=== PATIENT | male | born 1995 | race Caucasian/White ===

== ENCOUNTER 2017-03-08 15:09 | Emergency (ER) | payer BC ==
--- NOTE | ~2017-03-08 | CR21 ---
[facility] A Service of [facility] & [facility] RADIOLOGY TEXT RESULTS PATIENT: RACHEL DILLON LOCATION: SED : 95 UNIT #: [id number] AGE: [address]: ROLLY DAY SEX: M ORDER DR: [id number] [place] [id number] E MR#: [id number] Acc #: [id number] NAME: RACHEL DILLON. : 1995 SEX: M STUDY DATE/TIME: 03/08/2017 15:45 UNIT: SED ROOM: STUDY DESCRIPTION: CR Ankle Min 3 Views Rt Attending Physician: Rolly Day Ordering Physician: Rolly Day Primary Care Physician: Primary Care Physician No MEDICAL IMAGING REPORT This report is preliminary unless electronic signature is present. EXAM Right ankle 3 views. INDICATIONS Lateral ankle pain, swelling bruising since last night. No comparisons. FINDINGS There is soft tissue swelling overlying the lateral malleolus. No acute fracture or malalignment. IMPRESSION Soft tissue swelling overlying the lateral malleolus. No evidence for acute fracture. Dictated by... Patrick Sanders M.D. THIS IS AN ELECTRONICALLY VERIFIED REPORT Patrick Sanders M.D. at 03/09/2017 8:15 AM MANNY/rashi TD: 03/08/2017 22:47 JOB #: [id number] MEDICAL IMAGING REPORT Page 1 of 1
[~2017-03-08 15:09] MED LIST: KENALOG IN ORABA5 GM TOP
[2017-03-08] MEDS ORDERED: NO MEDICATIONS (15:12)
== END 2017-03-08 16:29 | disposition home or self-care (01) ==
LOC: SED 15:09
DX: S93.401A Sprain of unspecified ligament of right ankle, initial encounter (principal); X58.XXXA Exposure to other specified factors, initial encounter; Y92.9 Unspecified place or not applicable
CPT/HCPCS: 29515; 73610; 99283